=== PATIENT | female | born 1935 | race Asian ===

== ENCOUNTER 2018-03-04 12:17 | Inpatient (IN) | payer OTHER, MEDICAID ==
[~2018-03-04] VITALS: Ht 157.5 cm; Wt 149.6 kg
[2018-03-04 13:13] LABS: Hematocrit 33.3 % (36.0-46.0); Mean Corpuscular Hemoglobin 31.8 pg (28.0-32.0); Mean Corpuscular Hgb Conc. 33.2 g/dL (32.0-36.0); Platelet Count (auto) 121 10^3/uL (140-450); Red Blood Cells 3.47 10^6/uL (4.0-5.20); Red Cell Distribution Width 14.8 % (11.8-14.3); White Blood Cell 3.2 10^3/uL (4.4-10.8)
[2018-03-04 13:28] LABS: Band Neutrophils % (manual) 0; Basophils % (manual) 0 (0.0-2.0); Blast Cells 0; Metamyelocytes % 0; Myelocytes % 0; Promyelocytes % 0; Reactive Lymphocytes 0
[2018-03-04 13:35] LABS: Alanine Aminotransferase 23 U/L (13-56); Albumin 3.2 g/dL (3.4-5.0); Alkaline Phosphatase 75 U/L (45-117); Anion Gap 7 (5-15); Aspartate Aminotransferase 18 U/L (15-37); BUN/Creatinine Ratio 20.2; Bilirubin, Total 0.6 mg/dL (0.2-1.0); Blood Urea Nitrogen 17 mg/dL (7-18); Calcium 8.5 mg/dL (8.5-10.1); Carbon Dioxide 27 mmol/L (21-32); Chloride 105 mmol/L (98-107); GFR African American 83 mL/min; GFR Non-African American 69 mL/min; Glucose 101 mg/dL (74-106); Magnesium 2.3 mg/dL (1.6-2.6); Potassium 4.1 mmol/L (3.5-5.1); Sodium 139 mmol/L (136-145)
[2018-03-04 13:51] LABS: Eosinophils % (manual) 1 (0-7); Lymphocytes % (manual) 42 (10.0-50.0); Monocytes % (manual) 5 (0-12)
[2018-03-04 14:34] LABS: INR 1.03 (0.9-1.15)
[2018-03-04 15:14] LABS: Urine Bacteria NONE SEEN /hpf (None Seen); Urine Blood Negative /uL (Negative); Urine Mucus FEW (None Seen); Urine Specific Gravity 1.018 (1.001-1.035); Urine WBC 1 /hpf (0 - 5)
[2018-03-04] MEDS ORDERED: ASPirin-EC 81 mg tab PO ONE (15:15)
[2018-03-04] MEDS ORDERED: FUROSEMIDE 20 MG/2 ML VIAL IV ONE (15:15)
[2018-03-04] MEDS ORDERED: IOHEXOL 350 MG/ML 100ML IJ ONE (15:26)
[2018-03-04] MEDS ORDERED: NITROGLYCERIN 0.4 MG SL TAB SL PRN (15:30)
[2018-03-04] MEDS ORDERED: HYDROcodone-ACET 5/325MG TAB PO PRN (15:30)
[2018-03-04] MEDS ORDERED: LACTULOSE 20Gm/30ML SOLN PO PRN (15:30)
[2018-03-04] MEDS ORDERED: MORPHINE SULFATE 4 MG/ML SYR/VIAL IV PRN (15:30)
[2018-03-04] MEDS ORDERED: MORPHINE SULF INJ 2 MG/ML SYRINGE 1ML IV PRN (15:30)
[2018-03-04] MEDS ORDERED: TEMAZEPAM 15 MG CAP PO PRN (15:30)
[2018-03-04] MEDS ORDERED: LORazepam 0.5 MG TAB PO PRN (15:30)
[2018-03-04] MEDS ORDERED: PROMETHAZINE HCL 25 MG/ML 1ML IV PRN (15:30)
[2018-03-04] MEDS ORDERED: ACETAMINOPHEN 500 MG TAB PO PRN (15:30)
[2018-03-04] MEDS: CARVEDILOL 12.5 MG TAB PO SCH (21:36)
[2018-03-04] MEDS: ATORVASTATIN 20 MG TAB PO SCH (21:37)
[2018-03-04] MEDS: ENOXAPARIN SOD 60 MG/0.6 ML SYRINGE SC SCH (21:37)
[2018-03-04 22:00] VITALS: BP 114/67
[2018-03-04] MEDS ORDERED: CARVEDILOL 3.125 MG TAB PO SCH (22:00)
[2018-03-04] MEDS: SODIUM CHLOR 0.9% PF (SALINE LOCK) 10ML VIAL/SYR IV SCH (23:21)
[2018-03-05] VITALS (7 sets, daily range): BP systolic 90–114; BP diastolic 62–77
[2018-03-05] MEDS ORDERED: CHOL20007 OR (02:09)
[2018-03-05] MEDS ORDERED: FERR-20 PO (02:09)
[2018-03-05] MEDS ORDERED: AMLO5TAB2 PO (02:09)
[2018-03-05] MEDS: SODIUM CHLOR 0.9% PF (SALINE LOCK) 10ML VIAL/SYR IV SCH ×3 (06:47→22:12)
[2018-03-05 07:05] LABS: Hematocrit 32.1 % (36.0-46.0); Hemoglobin 10.6 g/dL (12.2-16.2); Mean Corpuscular Hemoglobin 31.4 pg (28.0-32.0); Mean Corpuscular Hgb Conc. 33.1 g/dL (32.0-36.0); Mean Corpuscular Volume 94.9 fL (80.0-100.0); Platelet Count (auto) 117 10^3/uL (140-450); Red Blood Cells 3.38 10^6/uL (4.0-5.20); Red Cell Distribution Width 14.7 % (11.8-14.3); White Blood Cell 3.8 10^3/uL (4.4-10.8)
[2018-03-05 07:14] LABS: Band Neutrophils % (manual) 0; Basophils % (manual) 0 (0.0-2.0); Blast Cells 0; Eosinophils % (manual) 0 (0-7); Metamyelocytes % 0; Myelocytes % 0; Promyelocytes % 0; Reactive Lymphocytes 0
[2018-03-05 07:33] LABS: Albumin 2.7 g/dL (3.4-5.0); BUN/Creatinine Ratio 22.8; Bilirubin, Total 0.6 mg/dL (0.2-1.0); Calcium 8.5 mg/dL (8.5-10.1); Potassium 3.8 mmol/L (3.5-5.1)
[2018-03-05 09:05] LABS: Monocytes % (manual) 6 (0-12)
[2018-03-05 09:08] LABS: Lymphocytes % (manual) 74 (10.0-50.0)
[2018-03-05] MEDS: ENOXAPARIN SOD 60 MG/0.6 ML SYRINGE SC SCH ×2 (10:00→22:13)
[2018-03-05] MEDS: NITROGLYCERIN 0.2MG/HR TOPICAL PATCH TD SCH (11:38)
[2018-03-05] MEDS: PANTOPRAZOLE 40 MG TAB PO SCH (11:38)
[2018-03-05] MEDS: CARVEDILOL 12.5 MG TAB PO SCH ×2 (11:38→22:00)
[2018-03-05] MEDS ORDERED: LIDOCAINE 2%HCL (LOCAL ANESTH.) INJ 10ml MDV ONE (13:42)
[2018-03-05] MEDS ORDERED: IOHEXOL 350 MG/ML 100ML IJ ONE (13:42)
[2018-03-05] MEDS ORDERED: ANGIOMAX 250 MG VIAL IV ONE (13:48)
[2018-03-05] MEDS ORDERED: SODIUM CHL 0.9% 0 ML ONE (13:49)
[2018-03-05] MEDS ORDERED: fentaNYL CITRATE 100 MCG/2 ML VL ONE (13:49)
[2018-03-05] MEDS ORDERED: MIDAZOLAM HCL 1MG/1ML-2 ML VIAL ONE (13:49)
[2018-03-05] MEDS: ENALAPRIL MALEATE 2.5 MG TAB PO SCH (17:48)
[2018-03-05] MEDS: ASPirin 81 mg TAB PO SCH (17:48)
[2018-03-05] MEDS: FUROSEMIDE 40 MG/4 ML VIAL IV SCH (17:48)
[2018-03-05] MEDS: SPIRONOLACTONE 25 MG TAB PO SCH (17:49)
[2018-03-05] MEDS: POTASSIUM CHL 20 Meq TABLET PO SCH (17:49)
[2018-03-05] MEDS: ATORVASTATIN 20 MG TAB PO SCH (22:13)
[2018-03-06 05:40] VITALS: BP 111/85
[2018-03-06] MEDS: SODIUM CHLOR 0.9% PF (SALINE LOCK) 10ML VIAL/SYR IV SCH (05:40)
[2018-03-06 06:32] LABS: Hemoglobin 10.7 g/dL (12.2-16.2); Mean Corpuscular Hemoglobin 31.6 pg (28.0-32.0); Mean Corpuscular Hgb Conc. 33.3 g/dL (32.0-36.0); Mean Corpuscular Volume 94.8 fL (80.0-100.0); Platelet Count (auto) 111 10^3/uL (140-450); Red Blood Cells 3.38 10^6/uL (4.0-5.20); Red Cell Distribution Width 14.8 % (11.8-14.3); White Blood Cell 3.7 10^3/uL (4.4-10.8)
[2018-03-06 06:48] LABS: BUN/Creatinine Ratio 31.9; Calcium 8.5 mg/dL (8.5-10.1)
[2018-03-06 06:56] LABS: Band Neutrophils % (manual) 0; Basophils % (manual) 0 (0.0-2.0); Blast Cells 0; Metamyelocytes % 0; Myelocytes % 0; Promyelocytes % 0; Reactive Lymphocytes 0
[2018-03-06 07:56] LABS: Eosinophils % (manual) 1 (0-7); Lymphocytes % (manual) 61 (10.0-50.0); Monocytes % (manual) 11 (0-12)
[2018-03-06 08:16] VITALS: BP 100/70
[2018-03-06 08:20] VITALS: BP 100/70
[2018-03-06] MEDS: NITROGLYCERIN 0.2MG/HR TOPICAL PATCH TD SCH (08:32)
[2018-03-06] MEDS: ENALAPRIL MALEATE 2.5 MG TAB PO SCH (08:32)
[2018-03-06] MEDS: POTASSIUM CHL 20 Meq TABLET PO SCH (08:33)
[2018-03-06] MEDS: FUROSEMIDE 40 MG/4 ML VIAL IV SCH (08:34)
[2018-03-06] MEDS: ASPirin 81 mg TAB PO SCH (09:16)
[2018-03-06] MEDS: ENOXAPARIN SOD 60 MG/0.6 ML SYRINGE SC SCH (09:16)
[2018-03-06] MEDS: SPIRONOLACTONE 25 MG TAB PO SCH (09:16)
[2018-03-06] MEDS: PANTOPRAZOLE 40 MG TAB PO SCH (09:17)
[2018-03-06] MEDS: CARVEDILOL 12.5 MG TAB PO SCH (09:17)
[2018-03-06] MEDS ORDERED: SPIR25TA88 PO (11:37)
[2018-03-06] MEDS ORDERED: ASPI81CH43 PO (11:37)
[2018-03-06] MEDS ORDERED: FURO40TA PO (11:37)
[2018-03-06] MEDS ORDERED: CAR125T PO (11:37)
[2018-03-06] MEDS ORDERED: ENA2.5T PO (11:37)
[2018-03-06 13:00] VITALS: BP 95/58
[2018-03-06 13:34] VITALS: BP 95/58
== END 2018-03-06 14:40 | disposition home health service (06) | DRG 287 ==
LOC: ER 12:17 → TELE 12:18 → TELE-WESTW 20:11
PROVIDERS: ADMIT Internal Medicine; ATTEND Internal Medicine
PROC: 4A023N7 Measurement of Cardiac Sampling and Pressure, Left Heart, Percutaneous Approach (ICD-10-PCS; principal; 2018-03-05)
PROC: B2111ZZ Fluoroscopy of Multiple Coronary Arteries using Low Osmolar Contrast (ICD-10-PCS; 2018-03-05)
PROC: B2151ZZ Fluoroscopy of Left Heart using Low Osmolar Contrast (ICD-10-PCS; 2018-03-05)
DX: I11.0 Hypertensive heart disease with heart failure (principal); I42.9 Cardiomyopathy, unspecified; I25.10 Atherosclerotic heart disease of native coronary artery without angina pectoris; I48.91 Unspecified atrial fibrillation; D50.9 Iron deficiency anemia, unspecified; I50.43 Acute on chronic combined systolic (congestive) and diastolic (congestive) heart failure; D64.9 Anemia, unspecified; R06.01 Orthopnea; I71.2 Thoracic aortic aneurysm, without rupture; D69.6 Thrombocytopenia, unspecified; E78.5 Hyperlipidemia, unspecified; R79.1 Abnormal coagulation profile; Z82.49 Family history of ischemic heart disease and other diseases of the circulatory system; Z90.5 Acquired absence of kidney
CPT/HCPCS: 36415; 71046; 71275; 80048; 80053; 80061; 81001; 82550; 83735; 83880; 84443; 84484; 85007; 85027; 85379; 85610; 85730; 93005; 93306; 93458; 93970; 96374; 99152; A6257; J2001; J2250